=== PATIENT | female | born 1970 | race Caucasian/White ===

== ENCOUNTER 2023-12-28 07:59 | Day surgery (SDC) | payer BC ==
[2023-12-28] MEDS: Lactated Ringers 1,000 ML IV SCH (08:24)
[2023-12-28] MEDS ORDERED: fentaNYL 50 MCG/ML SDV ONE (08:38)
[2023-12-28] MEDS ORDERED: Ketamine 200 MG/20 ML MDV ONE (08:38)
[2023-12-28] MEDS ORDERED: Propofol 200 MG/20 ML SDV ONE (08:38)
[2023-12-28] MEDS ORDERED: Flumazenil 0.1 MG/ML 10 ML MDV ONE (08:38)
[2023-12-28] MEDS ORDERED: Midazolam 1 MG/ML 2 ML SDV ONE (08:38)
== END 2023-12-28 10:00 | disposition home or self-care (01) ==
LOC: CC.SDS 07:59
PROVIDERS: ATTEND Family Medicine
DX: Z12.11 Encounter for screening for malignant neoplasm of colon (principal); J30.2 Other seasonal allergic rhinitis
CPT/HCPCS: 00812; 36415; 84703; J2250; J2704; J3010; J3490; J7120